=== PATIENT | male | born 1970 | race Caucasian/White ===

== ENCOUNTER 2023-12-03 01:24 | Emergency (ER) | payer OTHER, SELFPAY ==
[2023-12-03 01:31] VITALS: BP 135/90
[2023-12-03 01:39] VITALS: BMI 29.6
--- NOTE | 2023-12-03 01:41 | ED.GENMED ---
History of Present Illness
General
Chief Complaint: Flank Pain
Source: patient
Time Seen by Provider: 12/03/23 01:37
Travel History
Have you had any contact with someone who has COVID-19?: No
Do you have any symptoms of coronavirus? Fever > 100 degrees, chills, cough, shortness of breath, sore throat, loss of taste or smell, muscle aches, or headache?: No
History of Present Illness
History of Present Illness:
53-year-old male presents emergency room complaining of left flank pain. Pain started suddenly about 1 hour ago. Pain exists in the left flank and radiates around to the front. He is nauseous but has not vomited. He was feeling perfectly well up
until this pain started. No history of kidney stones. No history of trauma.
Past History
Past History
ED Past Medical History: HTN and Hypercholesterolemia
Social History
Tobacco: Non-smoker
Personal:
Living: with family
Employment: Employed
Phy Exam
Physical Exam
Physical Exam:
General: Awake, Alert, Oriented X3. Very uncomfortable due to flank pain
Vitals: unremarkable
Head: Atraumatic
Eyes: Pupils equal, EOMI
Throat: Airway intact, no exudates
Neck: Trachea midline
Lungs: Clear and equal b/l
Heart: Regular rate, no murmurs
Abd: Soft, no reproducible tenderness, No pulsatile mass
Back: Left CVA tenderness to percussion
Neuro: Nonfocal
Skin: Warm, dry, no rash
Extremities: pulses equal b/l, no edema
Course
Orders/Labs/Results
Orders:
Orders
12/03/23 01:38
CT Abd/pel Without Iv Or Oral Urgent
Comment:
Reason For Exam: left flank pain
HYDROmorphone [Dilaudid] 1 mg IV NOW STA
12/03/23 01:45
Basic Metabolic Panel Urgent
Complete Blood Count/With Diff Urgent
12/03/23 02:21
Ketorolac [Toradol] 15 mg IV NOW STA
12/03/23 02:52
Oxycodone [Roxicodone] 5 mg PO NOW STA
Abnormal Lab Results
12/03/23
01:45
RBC 4.68 L 10^6/uL
(4.70-6.10)
MCH 32.5 H pg
(27.0-31.0)
Plt Count 414 H 10^3/uL
(130-400)
Absolute Lymphs (auto) 4.7 H 10^3/uL
(1.2-3.4)
Absolute Monos (auto) 0.7 H 10^3/uL
(0.1-0.6)
Neutrophils % 34.5 L %
(42.2-75.2)
Lymphocytes % 52.3 H %
(20.5-51.1)
Potassium 3.4 L mmol/L
(3.5-5.1)
Carbon Dioxide 21 L mmol/L
(22-30)
BUN 23 H mg/dl
(9-20)
Glucose 128 H mg/dl
(70-99)
12/03/23 01:45
12/03/23 01:45
Vital Signs
Initial and Last Documented VS:
Initial Vital Signs
Temp Pulse Resp BP Pulse Ox
97.8 F 66 25 135/90 99
12/03/23 01:31 12/03/23 01:31 12/03/23 01:31 12/03/23 01:31 12/03/23 01:31
Last Documented Vital Signs
Temp Pulse Resp BP Pulse Ox
97.8 F 61 19 109/73 91
12/03/23 01:31 12/03/23 03:00 12/03/23 02:12 02/02/24 03:00 12/03/23 03:00
MDM/Problems Addressed
Differential Diagnosis Includes:
Kidney stone, pyelonephritis, muscle strain
MDM/Problems Addressed:
Patient presents quite uncomfortable. CT confirms the presence of a ureteral stone. It is less than 5 mm and therefore should have a high likelihood of passing spontaneously. With treatment the patient was more comfortable. He was comfortable
going home. Prescription sent for analgesia and antiemetics. Patient understands to return if he develops a fever prior to passing the stone. Urology follow-up given.
*Radiology
Radiology exam reviewed: other (Vision radiology report reviewed)
*Pulse Oximetry
Patient hypoxic: no
*EKG
Interpreted by ED Provider?: NA
*Critical Care Note
Total Time (30-74mins, 75-104mins- exclusive of procedures): Not Applicable
ED Attending Note
-
Portions of this chart may have been created with voice recognition software.� Occasional wrong word or��sound alike� substitutions may have occurred due to the inherent limitations of voice recognition software.
Discharge Plan
Departure
Patient Disposition: Home (Routine Discharge)
Date of Disposition: 12/03/23
Time of Disposition: 02:53
Patient with high blood pressure during this ER visit?: Yes
Condition: Good
Discharge Problem:
Renal colic on left side
Instructions: Kidney Stones (DC), How to Strain Your Urine, BLOOD PRESSURE, Narcotic Pain Medication
Prescriptions:
New
oxycodone 5 mg tablet
5 mg PO Q6H PRN (Reason: Pain) Qty: 12 0RF
ondansetron 4 mg tablet,disintegrating
4 mg PO TIDPRN PRN (Reason: nausea/vomiting) Qty: 20 0RF
No Action
cyclobenzaprine 10 MG tablet
10 mg PO TIDPRN PRN (Reason: muscle tightness/spasm) Qty: 30 0RF
ibuprofen 600 MG tablet
600 mg PO Q6HPRN PRN (Reason: pain) Qty: 30 0RF
Referrals:
Villa Ty MD [Active] -
Andreas Portillo DO [Family Provider] -
Activity Restrictions/Additional Instructions:
Call later this morning to make an appointment with Dr. Ty. Return to the emergency room if develop a fever prior to passing the stone.
Interventions
Interventions:
*Risk Screen - Suicide Last Done: 12/03/23 01:31
*General Assessment Last Done: 12/03/23 01:31
*Neglect/Abuse Screening Last Done: 12/03/23 01:31
ED- Fall Risk Assessment Last Done: 12/03/23 01:39
*ED COVID-19 Vaccine History Last Done: 12/03/23 01:31
*Nursing Disposition Last Done: 12/03/23 03:22
TL-Lpyoap-Ybzycdsrgb Assessment Last Done: 12/03/23 01:39
ED-Male Genitourinary Assessment Last Done: 12/03/23 01:39
Discharge Date and Time
Discharge Date/Time: 12/03/23 03:23
[2023-12-03] MEDS: DILAUDID 1 MG IV (01:43)
[2023-12-03 01:52] LABS: % Basophils 1.2 % (0-2); % Eosinophils 3.9 % (0-6); % Immature Granulocytes 0.1 % (0-0.5); % Lymphocytes 52.3 % (20.5-51.1); % Neutrophils 34.5 % (42.2-75.2); Absolute Basophils 0.1 10^3/uL (0-0.2); Absolute Eosinophils 0.4 10^3/uL (0-0.7); Absolute Lymphocytes 4.7 10^3/uL (1.2-3.4); Absolute Monocytes 0.7 10^3/uL (0.1-0.6); Absolute Neutrophils 3.1 10^3/uL (1.4-6.5); Hematocrit 41.7 % (39.0-52.0); Hemoglobin 15.2 g/dL (13.0-18.0); Mean Corp Hgb Conc. 36.5 g/dL (33.0-37.0); Mean Corpuscular Hgb 32.5 pg (27.0-31.0); Mean Corpuscular Volume 89.1 fL (80.0-94.0); Mean Platelet Volume 9.1 fL (7.4-10.4); Nucleated Red Blood Cells % 0 % (-); Platelet Count 414 10^3/uL (130-400); Red Blood Cell Count 4.68 10^6/uL (4.70-6.10); Red Cell Dist. Width 12.6 % (11.5-14.5)
[2023-12-03 02:24] LABS: Blood Urea Nitrogen 23 mg/dl (9-20); Carbon Dioxide 21 mmol/L (22-30); Chloride 101 mmol/L (98-107); Estimated Creatinine Clearance 79 ml/min; Glucose 128 mg/dl (70-99); Potassium 3.4 mmol/L (3.5-5.1); Sodium 137 mmol/L (135-145); eGFR > 60.00
[2023-12-03] MEDS: TORADOL 15 MG IV (02:24)
[2023-12-03 03:00] VITALS: BP 109/73
[2023-12-03] MEDS: ROXICODONE 5 MG PO (03:05)
== END 2023-12-03 03:23 | disposition home or self-care (01) ==
LOC: EMR 01:24
PROVIDERS: EMERGENCY PHYSICIAN Emergency Medicine; FAMILY PHYSICIAN Family Medicine
DX: N13.2 Hydronephrosis with renal and ureteral calculous obstruction (principal); I10 Essential (primary) hypertension
CPT/HCPCS: 99284; 96374; 96375; 74176; 80048; 85025

== ENCOUNTER 2024-08-06 19:39 | Inpatient (IN) | payer OTHER, SELFPAY ==
[2024-08-06] VITALS (13 sets, daily range): BP systolic 104–162; BP diastolic 74–96; BMI 29.8
[2024-08-06] MEDS: NSS 1000 IV (17:48)
[2024-08-06] MEDS: MORPHINE SULFATE 4 MG IV ×2 (17:48→17:51)
--- NOTE | 2024-08-06 17:48 | EDRN ---
Morphine 4mg IV administered for chest pain 08/[address] Phillips orders
--- NOTE | 2024-08-06 17:51 | EDRN ---
Morphine 4mg IV administered for CP 07/[address] Phillips orders
--- NOTE | 2024-08-06 17:53 | EDRN ---
the pt states that he has chest pain that is 4/10
[2024-08-06 17:54] LABS: % Basophils 1.4 % (0-2); % Eosinophils 1.9 % (0-6); % Immature Granulocytes 0.3 % (0-0.5); % Lymphocytes 28.3 % (20.5-51.1); % Neutrophils 60.1 % (42.2-75.2); Absolute Basophils 0.1 10^3/uL (0-0.2); Absolute Eosinophils 0.2 10^3/uL (0-0.7); Absolute Lymphocytes 2.9 10^3/uL (1.2-3.4); Absolute Monocytes 0.8 10^3/uL (0.1-0.6); Absolute Neutrophils 6.2 10^3/uL (1.4-6.5); Hematocrit 43.5 % (39.0-52.0); Hemoglobin 15.5 g/dL (13.0-18.0); Mean Corp Hgb Conc. 35.6 g/dL (33.0-37.0); Mean Platelet Volume 9.3 fL (7.4-10.4); Nucleated Red Blood Cells % 0 % (-); Platelet Count 428 10^3/uL (130-400); White Blood Cell Count 10.3 10^3/uL (4.8-10.8)
--- NOTE | 2024-08-06 18:02 | EDRN ---
the pt stated that he has no chest pain 0/10
[2024-08-06 18:04] LABS: APTT 23.2 Sec (23.4-35.0)
--- NOTE | 2024-08-06 18:04 | EDRN ---
Dr. Nuñez currently at the pts bedside speaking with the pt and the pts
--- NOTE | 2024-08-06 18:07 | ED.GENMED ---
History of Present Illness
General
Chief Complaint: Chest Pain
Source: patient
Exam Limitations: none
Time Seen by Provider: 08/06/24 17:40
History of Present Illness
History of Present Illness:
54-year-old male who presents with chest pain. Patient states he was feel fatigued about 2 to 3 hours ago. He was golfing. On his way home he began having he did take Cialis last night he admits. He was given 324 of aspirin by EMS. EMS did
perform EKGs prior to arrival. Patient reports 10 out of 10 chest pain. Reports a history of hypertension hypercholesterolemia. His father did have coronary disease. He is not a smoker
Past History
Past History
ED Past Medical History: HTN and Hypercholesterolemia
Social History
Tobacco: Non-smoker
Personal:
Living: with family
Employment: Employed
Phy Exam
Physical Exam
Physical Exam:
CONSTITUTIONAL Patient alert and oriented to person, place and time. Severe pain distress. Vital signs reviewed.
HEAD atraumatic, normocephalic.
EYES eyelids normal to inspection, Extraocular muscles intact, Conjunctiva normal, Sclera normal.
NECK normal range of motion, Trachea midline, no jugular venous distention.
RESPIRATORY CHEST No respiratory distress noted, Chest expansion equal, Bilateral breath sounds clear.
CARDIOVASCULAR regular rate and rhythm, Heart sounds normal.
BACK normal inspection, no obvious deformities
UPPER EXTREMITY range of motion normal, Motor strength normal, no cyanosis, no edema.
LOWER EXTREMITY range of motion normal, Motor strength normal, no cyanosis, no edema.
NEURO Speech normal, No focal motor deficits, [place] coma scale 15, Memory normal, Cranial Nerves intact to screening exam.
SKIN skin warm, dry, and normal in color.
PSYCHIATRIC patient oriented to person place and time, Normal affect.
Scores
Heart Score for Chest Pain Patients
STEMI patient?: Yes
Course
Orders/Labs/Results
Orders:
Orders
08/06/24 Dinner
Cholesterol Lowering
At Your Request: Full Participation
Cholesterol Lowering: Sodium, 2 Gram
08/06/24 17:40
EKG [Electrocardiogram (*1)] Urgent
Reason for Study: Chest Pain
EKG- Treatment ONCE
08/06/24 17:41
Morphine Sulfate 4 mg .ROUTE .STK-MED ONE
08/06/24 17:44
Morphine Sulfate 4 mg IV NOW STA
08/06/24 17:45
0.9% Sodium Chloride 1000 ml [Nss] 1,000 ml IV BOLUS
Morphine Sulfate 4 mg IV NOW STA
08/06/24 17:47
Basic Metabolic Panel Urgent
Complete Blood Count/With Diff Urgent
Glycohemoglobin (HgbA1c) Urgent
NT-proBNP Urgent
PT/INR [Prothrombin Time] Urgent
PTT Urgent
Troponin I Urgent
Morphine Sulfate 4 mg .ROUTE .STK-MED ONE
08/06/24 17:50
CR Chest Portable - 1 View Urgent
Comment:
Reason For Exam: chest pain
Reason Study Needs to be Portable: Patient Unstable
08/06/24 17:53
EKG [Electrocardiogram (*1)] Urgent
Reason for Study: Chest Pain
08/06/24 17:54
EKG- Treatment ONCE
08/06/24 18:02
EKG [Electrocardiogram (*1)] Urgent
Reason for Study: Chest Pain
EKG- Treatment ONCE
08/06/24 18:06
Potassium Stat
08/06/24 18:10
Fentanyl Citrate/Pf [Sublimaze] 100 mcg .ROUTE .STK-MED ONE
Heparin 10,000 units .ROUTE .STK-MED ONE
Midazolam HCl [Versed] 2 mg .ROUTE .STK-MED ONE
08/06/24 18:11
Heparin 1000 Units/500 ml [Heparin] 1,000 units in 500 ml .ROUTE .STK-MED
Verapamil Injectable [Isoptin/Verapamil Injection] 5 mg .ROUTE .STK-MED ONE
08/06/24 18:12
Lidocaine HCl/Pf [Xylocaine-Mpf 1% Vial] 100 mg .ROUTE .STK-MED ONE
Nitroglycerin [Tridil] 1,500 mcg .ROUTE .STK-MED ONE
08/06/24 18:42
Heparin 5,000 units .ROUTE .STK-MED ONE
Ticagrelor [Brilinta] 180 mg .ROUTE .STK-MED ONE
08/06/24 19:39
Admit Patient As Directed
Co-Sign Provider:
Level of Care: Inpatient admission
Assign to:: IVU
Physician / Group: Savannah
Diagnosis: STEMI
Reason for Hospitalization: STEMI
Expected length of stay greater than two midnights?: Yes
ELOS- Estimated Length of Stay in days: 2
I certify the patient meets the requirements for IP care: Yes
Electrocardiogram (*1) Urgent
Reason for Study: Other
Other Reason for Exam: s/p intervention
Code Status As Directed
Resuscitation Status: Full Code
CARDIAC REHAB CONSULT Routine
Co-Sign Provider:
Type of Cardiac Rehab Referral: Outpatient
Diagnosis: STEMI
Date of Diagnosis/Surgery: [id number]
Referring Provider: Georges Nuñez
Activity As Directed
Activity Level: Out of Bed- Chair
Comment: bed/chair rest for 2 hours then out of bed ad livia
Ladle Liner Helper Procedure As Directed
Cardiac Cath Procedure: percutaneous coronary intervention
Intake/ Output As Directed
Frequency: Per unit guidelines
Notify MD As Directed
Notify physician if: immediately for chest pain or bleeding from access site(s)
Radial Artery Hemostasis Method As Directed
Instructions:: 3 mL out at 2 hour posts placement of band
3 mL out at 2 1/2 hours post placement of band
3 mL out at 3 hours post placement of band
Off at 3 1/2 hours post placement of band
If any oozing or hemotoma occurs:: re-inflate band and call provider
Site Checks As Directed
Check access site for bleeding/hematoma: Yes
Comment: on arrival, Q15min x4, Q30min x2, Q1 hr x2, Q2 hr x2, Q4 hr or per
protocol
Vascular Checks As Directed
Location: distal to access site - pulse check
Frequency: Other
Comment: on arrival, Q15min x4, Q30min x2, Q1 hr x2, Q2 hr x2, Q4 hr or per protocol
Vital Signs As Directed
Frequency: Other
Additional Instructions:: on arrival, Q15min x4, Q30min x2, Q1 hr x2, Q2 hr x2, then Q4 hr or per unit
protocol
PRN Pain Medication Management As Directed
May give lesser potent ordered pain med per pt: Yes
preference::
Protocol:: Medication orders for pain may be administered in a
manner that supports deferring to patient preference
when the pt is:
- Requesting an ordered lesser potent pain medication.
Least to most potent pain medications are defined
as: acetaminophen < NSAID < tramadol < opioids
(morphine, oxycodone, hydromorphone).
- Requesting a lesser dose of the same medication IF
ORDERED.
- Requesting a less intrusive route of administration
if both routes are prescribed by the provider (PO <
IV).
08/06/24 19:40
DX Deep Vein Thrombosis Video Routine
08/06/24 20:00
Metoprolol Xl [Toprol Xl] 25 mg PO BID
Rosuvastatin Calcium [Crestor] 20 mg PO QPM
08/06/24 22:03
Troponin I Q6H
08/07/24 01:45
Troponin I Q6H
08/07/24 06:00
Electrocardiogram (*1) IN AM
Reason for Study: Other
Other Reason for Exam: s/p intervention
Electrocardiogram (*1) IN AM
Reason for Study: Chest Pain
Cardiology Consult: Georges Nuñez
Basic Metabolic Panel IN AM
Cardiovascular Evaluation IN AM
Complete Blood Count/No Diff IN AM
08/07/24 07:45
Troponin I Q6H
08/07/24 08:00
Aspirin Chewable [Low Strength Aspirin] 81 mg PO DAILY
Lisinopril [Zestril] 10 mg PO DAILY
Pantoprazole [Protonix] 40 mg PO DAILY
Ticagrelor [Brilinta] 90 mg PO BID
08/07/24 18:00
Enoxaparin Sodium [Lovenox] 40 mg SC QPM
Abnormal Lab Results
08/06/24 08/06/24 08/06/24
17:47 18:33 18:38
Plt Count 428 H 10^3/uL
(130-400)
Absolute Monos (auto) 0.8 H 10^3/uL
(0.1-0.6)
APTT 23.2 L Sec
(23.4-35.0)
Chloride 111 H mmol/L
(98-107)
Carbon Dioxide 16 L mmol/L
(22-30)
BUN 24 H mg/dl
(9-20)
Glucose 118 H mg/dl
(70-99)
POC ACT Low Range 165 H Seconds 231 H Seconds
(116-155) (116-155)
08/06/24 08/06/24
18:48 19:03
Plt Count
Absolute Monos (auto)
APTT
Chloride
Carbon Dioxide
BUN
Glucose
POC ACT Low Range 316 H Seconds 223 H Seconds
(116-155) (116-155)
08/06/24 17:47
08/06/24 18:06
Vital Signs
Initial and Last Documented VS:
Initial Vital Signs
Temp Pulse Resp BP Pulse Ox
98.5 F 75 19 104/74 100
08/06/24 17:41 08/06/24 17:41 08/06/24 17:41 08/06/24 17:41 08/06/24 17:41
Last Documented Vital Signs
Temp Pulse Resp BP Pulse Ox
98.0 F 90 16 151/96 96
08/06/24 20:21 08/06/24 20:45 08/06/24 20:21 08/06/24 20:44 08/06/24 20:21
MDM/Problems Addressed
MDM/Problems Addressed:
Acute STEMI
*Radiology
Radiology exam reviewed: all reviewed NAD by ED Provider
*Pulse Oximetry
Patient hypoxic: no
*EKG
Interpreted by ED Provider?: Yes
Interpretation: abnormal
Rate: normal
Rhythm: sinus
Ischemia: ST elevation (Anterior ST elevation with inferior reciprocal changes)
*[place] Refinisher Interpretation
Rate: normal
Interpretation: normal
Rhythm: sinus
*Critical Care Note
Total Time (30-74mins, 75-104mins- exclusive of procedures): 30 minutes
Data Reviewed
Source: patient, family and ambulance crew
Patient Management
Discussion with other providers: Specialty Development Consultant (Case discussed with Dr. Nuñez)
Escalation/DeEscalation of care consider admission/obs:
54-year-old male presents with severe chest pain. Patient took Cialis so held off on nitroglycerin. Given aspirin, Brilinta, heparin and morphine. Pain now much improved and 30 EKG shows what appears to be reperfusion and improved ST segments.
Seen by Dr. Pool at bedside and emergently will be sent to cardiac catheterization lab.
ED Attending Note
-
Portions of this chart may have been created with voice recognition software.� Occasional wrong word or��sound alike� substitutions may have occurred due to the inherent limitations of voice recognition software.
Discharge Plan
Departure
Patient Disposition: Admit
Date of Disposition: 08/06/24
Time of Disposition: 18:05
Admit to: photofinishing laboratory worker
Presentation/result/management discussed w/ accepting MD/DO: Savannah
Discharge Problem:
ST elevation (STEMI) myocardial infarction
Interventions
Interventions:
*General Assessment Last Done: 08/06/24 17:41
*Neglect/Abuse Screening Last Done: 08/06/24 17:41
ED- Fall Risk Assessment Last Done: 08/06/24 17:41
*Nursing Disposition Last Done: 08/06/24 18:28
ED- Cardiac Assessment Last Done: 08/06/24 17:41
Discharge Date and Time
Discharge Date/Time: 08/06/24 18:29
[2024-08-06 18:08] LABS: Blood Urea Nitrogen 24 mg/dl (9-20); Calcium 8.7 mg/dl (8.4-10.2); Carbon Dioxide 16 mmol/L (22-30); Chloride 111 mmol/L (98-107); Estimated Creatinine Clearance 78 ml/min; Glucose 118 mg/dl (70-99); Sodium 141 mmol/L (135-145); eGFR > 60.00
--- NOTE | 2024-08-06 18:15 | EDRN ---
verbal report was called to the labor service representative by this RN and the pt was taken to labor service representative room #1 by this RN
[2024-08-06 18:18] LABS: NT-proBNP < 20.0 pg/ml; Troponin I < 0.012 ng/ml
[2024-08-06 18:25] LABS: Potassium 3.9 mmol/L (3.5-5.1)
[2024-08-06 18:37] LABS: ACT-LR - POC 165 Seconds (116-155)
[2024-08-06 18:44] LABS: ACT-LR - POC 231 Seconds (116-155)
[2024-08-06 18:55] LABS: ACT-LR - POC 316 Seconds (116-155)
[2024-08-06 19:08] LABS: ACT-LR - POC 223 Seconds (116-155)
--- NOTE | 2024-08-06 19:41 | PTCARENOTE ---
received patient from the medical laboratory technologist. AAOx3. denies any cp. patient states 'Im just tired.' SR 80s with PVCs. bp 122/95. at the bedside. EKG completes. R radial band intact. no bleeding. awaiting orders.
--- NOTE | 2024-08-06 19:46 | ITS.CL.CATH ---
Flat Bed Knitter - Catheterization
Cardiac Catheterization
Procedure Report:
LEFT HEART CATH AND CORONARY INTERVENTION
Date of Procedure: August 06, 2024
Referring: [facility] Emergency Department
PROCEDURES:
1. Left heart catheterization with coronary and single-plane left ventriculography
2. Successful stenting of the proximal LAD with a 3.5 x 15 mm Ava stent that was implanted at nominal pressures and postdilated with a 3.75 mm noncompliant balloon
3. Post dilation of the stent with a 3.75 mm noncompliant balloon to 16 miki
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
chest discomfort. The symptoms began while he was playing golf this afternoon and worsened. In the emergency department he was noted to have marked anterior segment ST elevation. He received morphine, aspirin, heparin, and ticagrelor and a STEMI
alert was activated. Over the next 15 minutes his symptoms began to improve with medical therapy and his electrocardiogram corresponded with resolution of his anterior ST segment elevation. However, given the initial ECG changes the decision was
made to proceed with coronary angiography.
ACCESS: Right radial artery, 6 Thai sheath using ultrasound guidance after initial attempt was unsuccessful
HEMODYNAMICS (mmHg):
AO (s/d, m) : 134/85, 92
LV (s/d) : 139/18
LVEDP : 25
CORONARY FINDINGS
Dominance: Codominant
LEFT MAIN: Short and unobstructed
LEFT ANTERIOR DESCENDING: Hazy, irregular 65-70% stenosis with angiographic appearing consistent with ruptured plaque. The apical LAD is occluded.
CIRCUMFLEX: The circumflex is a large-caliber codominant vessel giving rise to a small-medium caliber OM1 and very small OM 2. The circumflex then continues in the AV groove supplying a large posterolateral branch and PDA. Minor irregularities
RIGHT CORONARY: Codominant and small with minor irregularities
VENTRICULOGRAPHY: Left ventriculography was performed in an [place] projection. The digital single-plane left ventricular ejection fraction is visually estimated at 55% with mild anterolateral hypokinesis and apical/inferoapical severe hypokinesis
ANGIOPLASTY PROCEDURE DETAIL: Upon review of the diagnostic catheterization films the decision was made to proceed with percutaneous revascularization of the hazy and ulcerated proximal LAD stenosis. Intravenous heparin was administered and the ACT
was monitored throughout the procedure. The origin of the left main was cannulated with a 6 Thai XB 3.5 guiding catheter and a BMW guidewire was advanced across the ruptured plaque in the proximal LAD. A 3.5 x 15 mm Marin stent was then advanced
over the guidewire and position with angiographic and fluoroscopic guidance. The stent was implanted at 12 miki then postdilated with a 3.75 mm noncompliant balloon to 16 miki. Intravascular ultrasound was then performed which demonstrated good
stent expansion. The guidewire and guide catheter were removed.
RADIATION SUMMARY: Fluoro Time (min): 8.0, Dose (mGy): 514, DAP (Gy.cm2) : 36.0
CONCLUSIONS
1. Acute coronary syndrome with aborted ST segment elevation myocardial infarction following administration of aspirin, heparin, and ticagrelor. Symptoms resolved and ECG changes resolved. Angiography found a stenosis in the proximal LAD that was
angiographic consistent with a ruptured plaque with associated thrombus. The segment was stented with a 3.5 x 15 mm Ava stent that was implanted at nominal pressures then postdilated to high pressures with a 3.75 mm noncompliant balloon
2. Preserved left ventricular systolic function with mild anterolateral hypokinesis and focal apical severe hypokinesis
RECOMMENDATIONS
1. Uninterrupted dual antiplatelet therapy
2. Secondary risk modification
3. Prior intolerance to atorvastatin. Will treat with 20 mg daily of rosuvastatin
Copy to: Dr. Georges Nuñez
[2024-08-06] MEDS: TOPROL XL 25 MG PO (20:44)
[2024-08-06] MEDS: CRESTOR 20 MG PO (20:44)
--- NOTE | 2024-08-06 23:08 | PTCARENOTE ---
patient oob to the bathroom and chair. denies any lightheadedness/dizziness. steady on feet. R radial band removed with no issues. +pulses. SR on tele with PVCs. patient states having palpitations at times. no chest pain. educated patient to inform
RN with any changes overnight. activity restrictions reviewed. bp stable. call perez within reach.
[2024-08-07] VITALS (7 sets, daily range): BP systolic 107–144; BP diastolic 72–91
--- NOTE | 2024-08-07 03:43 | PTCARENOTE ---
some ectopy noted on tele review overnight. SB-SR 50-60s; PVCs. bp 117/72. no cp overnight. updated Abdon [facility] [employer] regarding ectopy. mag level ordered and sent.
[2024-08-07 04:13] LABS: Hematocrit 40.6 % (39.0-52.0); Hemoglobin 14.4 g/dL (13.0-18.0); Mean Corp Hgb Conc. 35.5 g/dL (33.0-37.0); Mean Corpuscular Volume 93.1 fL (80.0-94.0); Mean Platelet Volume 9.5 fL (7.4-10.4); Platelet Count 356 10^3/uL (130-400); Red Blood Cell Count 4.36 10^6/uL (4.70-6.10); White Blood Cell Count 11.4 10^3/uL (4.8-10.8)
[2024-08-07 04:32] LABS: Blood Urea Nitrogen 26 mg/dl (9-20); Calcium 9.6 mg/dl (8.4-10.2); Carbon Dioxide 23 mmol/L (22-30); Chloride 104 mmol/L (98-107); Estimated Creatinine Clearance 86 ml/min; Glucose 108 mg/dl (70-99); HDL Cholesterol 35 mg/dl; LDL Cholesterol, Calculated 163 mg/dl; Magnesium 1.9 mg/dl (1.6-2.3); Potassium 4.1 mmol/L (3.5-5.1); Sodium 138 mmol/L (135-145); Total Cholesterol 261 mg/dl (50-199); Triglyceride 316 mg/dl (10-149); Very Low Density Lipoprotein 63 mg/dl (0-30); eGFR > 60.00
--- NOTE | 2024-08-07 08:10 | PTCARENOTE ---
Assumed care of pt from prev nsg shift; pt AAOx3 w/no c/o CP or SOB. Pt's VS stable w/HR in the 60's & BP this AM 144/76. Pt is SR on telemetry monitoring. Pt w/ R radial access site w/dressing C/D/I & no signs or symptoms of bleeding or hematoma.
Pt w/call perez within reach & plan of care ongoing.
[2024-08-07 08:25] LABS: Glycohemoglobin (HgbA1c) 5.9 % (4.0-5.6)
--- NOTE | 2024-08-07 09:30 | W.PN.CARDCBS ---
Addendum entered and electronically signed by Jade Chong DO 08/07/24 17:52:
I saw and examined the patient.
The [employer] Supervisor's note was reviewed and I agree with the note.
Comment: Patient seen and examined. Overall feels better with no recurrent chest pain or pressure. No indigestion. Denies shortness of breath.
General: No acute distress, AAOX3
Neck: Negative JVD
Heart: Regular, positive S1/S2, No murmur
Lungs: CTA b/l, negative wheezes/rales/rhonchi
Abd: Positive BS, NT/ND, neg rebound/rigidity/guarding
Ext: no edema. Right radial site intact
Neuro: nonfocal
Plan:
ACS with transient ST elevations found to have 65-70% hazy stenosis in the proximal LAD consistent with ruptured plaque
-Peak troponin 2.13
-s/p Proximal LAD with a 3.5 x 15 mm Marin stent 08/06/2024
-radial site ok
-tele without arrhythmia
-2D echocardiogram with normal LV systolic function and wall motion. EF 55-60%. Aortic sclerosis without stenosis or significant aortic regurgitation. Trivial mitral and tricuspid regurgitation. No pericardial effusion.
-Continue uninterrupted dual antiplatelet therapy for at least 1 year with aspirin and Brilinta
-Prestatin cholesterol: Triglycerides 316, total cholesterol 261, LDL 163, HDL 35. Mixed hyperlipidemia and pretherapy numbers reviewed with patient. Goal LDL less than 70 mg/dL if not ideally closer to 55-60 mg/dL. New rosuvastatin 20 mg daily
and would also start Vascepa 2 g daily given elevated triglycerides. Repeat lipid profile in 3 months.
-Blood pressure heart rates at goal on current medications which include new Toprol-XL 25 mg twice daily, lisinopril 10 mg daily.
-Hemoglobin A1c 5.9% consistent with prediabetes. Would start metformin and consider future addition of SGLT2 inhibitor. Goal normoglycemia
-Cardiac rehab consult
Original Note:
Today's Communication / Plan
-
Echo pending
Continue aspirin, Brilinta, beta-everardo, MYA inhibitor and statin
Continue to monitor and trend troponin
Cardiac rehab consultation
Impression / Plan
-
PCP: Andreas Portillo
Php Programmer: Initial consultation Dr. Georges Nuñez
Impression:
Presented 08/06/2024 with weakness, fatigue and chest discomfort
Aborted STEMI/ACS
Abnormal troponin
Coronary artery disease
s/p Proximal LAD with a 3.5 x 15 mm [place] stent 08/06/2024
Hypertension
Hyperlipidemia
Echo 08/07/2024: Ordered
Cardiac catheterization 08/06/2024: LM. Normal. LAD irregular 65 to 70% hazy stenosis consistent with ruptured plaque, apical LAD occluded, s/p proximal LAD with a 3.5 x 15 mm Marin stent. Left circumflex, LI. RCA: LI. LVG EF 55% with mid
anterior lateral hypokinesis and apical/inferoapical severe hypokinesis
Plan:
-Presented 08/06/2024 with weakness, fatigue and chest discomfort. EKG concerning for STEMI.
-In ED he received morphine, aspirin, heparin, and ticagrelor and a STEMI alert was activated. Over the next 15 minutes his symptoms began to improve with medical therapy and his electrocardiogram corresponded with resolution of his anterior ST
segment elevation. Therefore, would be considered aborted STEMI with clinical picture consistent w/ ACS
-Cardiac catheterization demonstrated 65 to 70% hazy stenosis consistent with ruptured plaque, status post proximal LAD PCI with 3.5 x 15 mm Marin KELSIE 08/06/2024. Right radial access site clean dry intact without hematoma.
-Initial troponin undetectable, however repeat elevated 0.33->1.660. Trend to peak.
-Patient currently chest pain-free. EKG morning of 08/07/2024 shows sinus rhythm without ischemic changes. Patient did have frequent PVCs with some ventricular bigeminy 08/06/2024. 2 brief episodes of NSVT, 3 beats longest 08/07/2024. New to
beta-everardo. Continue to monitor on telemetry
-Will require dual antiplatelet therapy with aspirin and Brilinta x 1 year. Will have case management consulted for cost of Brilinta
-New to Toprol. Continue lisinopril
-Check echocardiogram
-Prestatin lipids TC 261, HDL 35, LDL 163, triglycerides 316. Hemoglobin A1c 5.9%. Per review of outpatient records did not tolerate atorvastatin previously. New to rosuvastatin 20 mg daily. Goal LDL less than 70 ideally closer to 55
-Cardiac rehab consult
Reviewed results of above studies, treatment plan and decision with patient and his who is sitting at bedside.
Progress Note - Php Programmer
Subjective
Date of Service: August 07, 2024
Patient seen and examined patient resting comfortably in bed. He denies additional episodes of chest discomfort since initial presentation. at bedside.
Objective
Labs:
08/07/24 03:32
08/07/24 03:32
Labs
Hgb 14.4 g/dL (13.0-18.0) 08/07/24 03:32
Hct 40.6 % (39.0-52.0) 08/07/24 03:32
Plt Count 356 10^3/uL (130-400) 08/07/24 03:32
PT 13.0 Sec (11.4-14.6) 08/06/24 17:47
INR 1.00 08/06/24 17:47
APTT 23.2 Sec (23.4-35.0) L 08/06/24 17:47
Sodium 138 mmol/L (135-145) 08/07/24 03:32
Potassium 4.1 mmol/L (3.5-5.1) 08/07/24 03:32
BUN 26 mg/dl (9-20) H 08/07/24 03:32
Creatinine 1.0 mg/dL (0.7-1.3) 08/07/24 03:32
Glucose 108 mg/dl (70-99) H 08/07/24 03:32
Troponins
08/06/24 08/06/24 08/07/24
17:47 22:03 03:32
Troponin I < 0.012 0.330 H* D 1.660 H* D
Vital Signs and I&O:
Vital Signs
Temp Pulse Resp BP Pulse Ox
98.4 F 62 18 135/91 96
08/07/24 08:32 08/07/24 08:45 08/07/24 08:32 08/07/24 08:35 08/07/24 08:32
Vital Signs
Temp Pulse Resp BP Pulse Ox
98.4 F 62 18 135/91 96
08/07/24 08:32 08/07/24 08:45 08/07/24 08:32 08/07/24 08:35 08/07/24 08:32
Intake & Output
08/05/24 08/06/24 08/07/24 08/08/24
06:59 06:59 06:59 06:59
Intake Total 950 / 950
Balance 950 / 950
Physical Exam
Physical Exam
GEN: No distress, awake, Ox3
HEENT: supple, anicteric, mmm
LUNGS: CTA, no wheezes/rales
CV: Reg, S1/S2, no murmur, rub or gallop
ABD: soft, BS+, NT/ND
EXT: No edema, clubbing or cyanosis, right radial access site with achieved hemostasis. Dressing clean dry intact. No hematoma. Palpable radial and ulnar pulses
NEURO: Gross non-focal
SKIN: No rash, warm, dry, pink
[2024-08-07] MEDS: ZESTRIL 10 MG PO (09:38)
[2024-08-07] MEDS: LOW STRENGTH ASPIRIN 81 MG PO (09:38)
[2024-08-07] MEDS: BRILINTA 90 MG PO ×2 (09:38→20:03)
[2024-08-07] MEDS: PROTONIX 40 MG PO (09:38)
[2024-08-07] MEDS: TOPROL XL 25 MG PO ×2 (09:38→20:03)
--- NOTE | 2024-08-07 10:56 | CM ---
Pricing on Brilinta is $293, patient has a total $8500 deductible that needs to be met. Patient qualifies for the coupon card, patient will pay $ 93 until deducible is met and then he qualfies for the $5 a month. I place it in the patient's red
discharge folder.
--- NOTE | 2024-08-07 13:46 | CM ---
Chart reviewed. Patient is independent of ADLS, lives with his in a [address], 2 [facility], 0 DME. Plan is for the patient to return home. CM to follow
[2024-08-07] MEDS: LOVENOX 40 MG SC (18:37)
[2024-08-07] MEDS: CRESTOR 20 MG PO (18:37)
--- NOTE | 2024-08-07 20:48 | PTCARENOTE ---
Pt rec'd with family at bedside. Pt tolerated showering without complaint of sob or cp. right radial site drsg removed left torsten. Sinus on telemetry. back to recliner at this time
[2024-08-08 04:48] VITALS: BP 106/70
--- NOTE | 2024-08-08 04:50 | PTCARENOTE ---
Pt with no c/o pain. Right radial site intact, good pulse. Sinus mia on telemetry.
[2024-08-08 08:08] VITALS: BP 116/84
[2024-08-08] MEDS: BRILINTA 90 MG PO (08:10)
[2024-08-08] MEDS: PROTONIX 40 MG PO (08:11)
[2024-08-08] MEDS: LOW STRENGTH ASPIRIN 81 MG PO (08:11)
[2024-08-08] MEDS: TOPROL XL 25 MG PO (08:11)
[2024-08-08] MEDS: ZESTRIL 10 MG PO (08:11)
--- NOTE | 2024-08-08 08:49 | PTCARENOTE ---
Assumed care of pt from night RN. Pt received awake and alert, Ox3. VSS, CM shows SB 50's, POX 95% on RA. Right wrist CLIENT SERVICE MANAGER with normal CMS. Pt denies any pain or discomfort at this time. Will continue to monitor closely.
[2024-08-08 11:04] VITALS: BP 115/73
--- NOTE | 2024-08-08 11:15 | PTCARENOTE ---
Vital signs downloaded from previous shift [id number]
--- NOTE | 2024-08-08 11:30 | W.PN.CARDCBS ---
Today's Communication / Plan
-
D/C to home
[id number]
Impression / Plan
-
PCP: Andreas Portillo
Architectural Engineer: Initial consultation Dr. Georges Nuñez
Impression:
Presented 08/06/2024 with weakness, fatigue and chest discomfort
Aborted STEMI/ACS, peak Troponin 2.13
Coronary artery disease
s/p Proximal LAD with a 3.5 x 15 mm [place] stent 08/06/2024
Hypertension
Hyperlipidemia
Prediabetes
Echo 08/07/2024: EF 55 to 60%, trace MR, aortic sclerosis without stenosis, normal right heart with normal pulmonary artery pressure
Cardiac catheterization 08/06/2024: LM. Normal. LAD irregular 65 to 70% hazy stenosis consistent with ruptured plaque, apical LAD occluded, s/p proximal LAD with a 3.5 x 15 mm Marin stent. Left circumflex, LI. RCA: LI. LVG EF 55% with mid
anterior lateral hypokinesis and apical/inferoapical severe hypokinesis
Plan:
-Patient with STEMI in [facility] 08/06/[address] elevations improved with initial morphine, aspirin, Heparin and Brilinta treatment. Patient taken to wastewater analyst lab analyst and found to have prox LAD disease that was stented with a 3.5 mm [place] KELSIE. No residual disease
-Troponin peaked at 2.13
-Echo noted above without WMA
-Tolerating aspirin and Brilinta. Appreciate help of CM in determining that patient can use co-pay card. Discussed 1 year of Brilinta for now and then aspirin lifelong
-Outpatient dose of lisinopril decreased to 10 mg daily
-New to Toprol XL 25 mg BID. Patient has had near syncope/syncope with lisinopril in the past and was taking this dose at night. He is new to Toprol XL and will follow symptoms and if needed we can reduce dosing.
-HgbA1c was 5.9% and patient will be seen by DM educator. Will not add meds at this time and recommended dietary changes and rechecking HgbA1c in 3 months.
-LDL was 163. Previously intolerant to atorvastatin due to myalgias. New to Crestor 20 mg daily and if recurrent myalgias patient will call the office. Reviewed that could try PCSK9 inhibitors if recurrent myalgias, but that statin would be our
first choice and patient willing to try.
-Cardiac rehab consult
-Stable for d/c to home 08/08/24
Progress Note - Architectural Engineer
Subjective
Date of Service: August 08, 2024
Feels well, wants to go home
Objective
Labs:
08/07/24 03:32
08/07/24 03:32
Labs
Hgb 14.4 g/dL (13.0-18.0) 08/07/24 03:32
Hct 40.6 % (39.0-52.0) 08/07/24 03:32
Plt Count 356 10^3/uL (130-400) 08/07/24 03:32
PT 13.0 Sec (11.4-14.6) 08/06/24 17:47
INR 1.00 08/06/24 17:47
APTT 23.2 Sec (23.4-35.0) L 08/06/24 17:47
Sodium 138 mmol/L (135-145) 08/07/24 03:32
Potassium 4.1 mmol/L (3.5-5.1) 08/07/24 03:32
BUN 26 mg/dl (9-20) H 08/07/24 03:32
Creatinine 1.0 mg/dL (0.7-1.3) 08/07/24 03:32
Glucose 108 mg/dl (70-99) H 08/07/24 03:32
Troponins
08/06/24 08/06/24 08/07/24
17:47 22:03 03:32
Troponin I < 0.012 0.330 H* D 1.660 H* D
08/07/24 08/07/24
09:37 16:16
Troponin I 2.130 H* D 1.730 H*
Vital Signs and I&O:
Vital Signs
Temp Pulse Resp BP Pulse Ox
97.9 F 57 16 116/84 93
08/08/24 11:02 08/08/24 11:02 08/08/24 11:02 08/08/24 08:08 08/08/24 11:02
Vital Signs
Temp Pulse Resp BP Pulse Ox
97.9 F 57 16 116/84 93
08/08/24 11:02 08/08/24 11:02 08/08/24 11:02 08/08/24 08:08 08/08/24 11:02
Intake & Output
08/06/24 08/07/24 08/08/24 08/09/24
06:59 06:59 06:59 06:59
Intake Total 950 / 950 480 / 480
Balance 950 / 950 480 / 480
Physical Exam
Physical Exam
GEN: AAOx3
HEENT: mmm
LUNGS: No audible wheeze
CV: SR on tele
ABD: ND
EXT: No edema B/L
NEURO: Gross non-focal
SKIN: No rash
--- NOTE | 2024-08-08 13:02 | PN.DE.MGMTRT ---
Insulin Management
- -
08/08/2024 Diabetes Management Consult
Patient admitted 08/06 with chest pain, stemi, fatigue. PMH HTN, HCL. A1C on admission 5.9%, cr 1, eGFR > 60.
s/p cardiac cath with stent.
Patient is awake alert and oriented sitting in bed. at bedside and very supportive.
Discussed with patient diagnostic criteria for diabetes and provided diabetes education booklet for reference. Did discuss starting Farxiga for new cardiac history patient prefers to wait to speak with his primary provider in [place].
Glucose has been controlled, 228 on admission and fasting 108.
My number provided for further questions.
Diabetes History
- -
Type of Diabetes: 2
Pre-Admission Diabetes Regimen
Lab Results
Hemoglobin A1c Cancelled 08/06/24 19:41
Insulin Pump Settings
IP Diabetes Regimen
Meal type: Breakfast
Meal type: Dinner
Amount consumed: 100%
Amount consumed: 100%
Patient Education
--- NOTE | 2024-08-08 13:09 | W.DS.TRANS ---
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
-
Discharge Instructions:
Discharge Diagnosis/Procedures ST elevation myocardial infarction, LAD stent
Diet No added salt,Low Fat,Diabetic, Carb Controlled
Activity Other activity
Driving Restrictions As prior to admission
Bathing Restrictions OK to Shower
Blood Work Recheck hemoglobin A1c level and cholesterol
levels in 3 months, we will give you a lab slip
when we see you in the office
Other Services Cardiac Rehab
Instructions:
Stand-Alone Forms: DC Instructions- Cath/EP Lab
Changes to Home Medications: Yes
Discharge Medications:
DC Medications w/original date entered in [employer]
aspirin 81 mg chewable tablet 81 mg PO DAILY Heart disease/condition #30 tabs 08/08/24
lisinopril 10 mg tablet 10 mg PO DAILY Heart disease/condition #30 tabs 08/08/24
metoprolol succinate 25 mg tablet,extended release 24 hr 25 mg PO BID Heart disease/condition #60 tabs 08/08/24
pantoprazole 40 mg tablet,delayed release 40 mg PO DAILY Gastrointestinal issue #30 tabs 08/08/24
rosuvastatin 20 mg tablet 20 mg PO QPM High cholesterol #30 tabs 08/08/24
ticagrelor 90 mg tablet (Brilinta) 90 mg PO BID Heart disease/condition #60 tabs 08/08/24
Home Medication Changes
Lisinopril dose decreased
New to aspirin, Brilinta, Toprol XL, Crestor and Protonix
Pending Results: No
[2024-08-08 13:28] VITALS: BP 112/82
--- NOTE | 2024-08-08 14:58 | PTCARENOTE ---
Discharge instructions/ meds reviewed ,and lisinopril order clarified with Terrie ARROYO. INT d/c'd. Pt brought to front door via wheelchair to /car. VSS.
== END 2024-08-08 14:57 | disposition home or self-care (01) | DRG 322 ==
LOC: IVU 19:39
PROVIDERS: Physician Assistant Medical; ADMITTING PHYSICIAN Internal Medicine Interventional Cardiology; EMERGENCY PHYSICIAN Emergency Medicine
PROC: 027034Z Dilation of Coronary Artery, One Artery with Drug-eluting Intraluminal Device, Percutaneous Approach (ICD-10-PCS; 2024-08-06)
PROC: B2151ZZ Fluoroscopy of Left Heart using Low Osmolar Contrast (ICD-10-PCS; 2024-08-06)
PROC: B2111ZZ Fluoroscopy of Multiple Coronary Arteries using Low Osmolar Contrast (ICD-10-PCS; 2024-08-06)
PROC: 4A023N7 Measurement of Cardiac Sampling and Pressure, Left Heart, Percutaneous Approach (ICD-10-PCS; 2024-08-06)
DX: I21.3 ST elevation (STEMI) myocardial infarction of unspecified site (principal); I25.10 Atherosclerotic heart disease of native coronary artery without angina pectoris; I10 Essential (primary) hypertension; E78.2 Mixed hyperlipidemia; I70.0 Atherosclerosis of aorta
CPT/HCPCS: 71045; 80048; 80061; 83036; 83735; 83880; 84132; 84484; 85025; 85027; 85347; 85610; 85730; 92978; 93005; 93306; 93458; 96372; 96374; 96375; 99291; C1725; C1753; C1769; C1874; C1887; C1894; C9600; Q9967

== ENCOUNTER 2024-09-25 17:38 | Outpatient (RCR) | payer OTHER, SELFPAY | END 2024-09-25 23:59 | disposition home or self-care (01) | LOC: CRHB 17:38 | PROVIDERS: ATTENDING PHYSICIAN Internal Medicine Interventional Cardiology | DX: I25.2 Old myocardial infarction (principal); Z95.4 Presence of other heart-valve replacement | CPT/HCPCS: 93797; 93798 ==

== ENCOUNTER 2024-10-16 17:38 | Outpatient (RCR) | payer OTHER, SELFPAY | END 2024-10-16 23:59 | disposition home or self-care (01) | LOC: CRHB 17:38 | PROVIDERS: ATTENDING PHYSICIAN Internal Medicine Interventional Cardiology; FAMILY PHYSICIAN Family Medicine | DX: I21.01 ST elevation (STEMI) myocardial infarction involving left main coronary artery (principal); Z95.5 Presence of coronary angioplasty implant and graft | CPT/HCPCS: 93798 ==